=== PATIENT | female | born 1970 | race Caucasian/White ===

== ENCOUNTER 2016-03-22 11:00 | Emergency (ER) | payer BC, OTHER ==
[~2016-03-22 11:00] MED LIST: FOSI1TAB8 PO; HAIRTAB5 PO; HYDR12.55 PO; IBUP600T26 PO; MONT10TA2 PO; NORC5TAB PO; OMEP40CA2 PO; PROA1AER IN; PROBCAP4 PO; advair INH; fluticasone
[2016-03-22 11:49] LABS: EOS # 0.6 K/mm3 (0.0-0.50); EOS % 12.2 % (0.0-3.0); LARGE UNSTAINED CELL # 0.2 K/mm3 (0.0-0.4); LYMPH % 39.3 % (24.0-44.0); MEAN CORPUSCULAR HEMOGLOBIN 31.7 pg (27.0-33.0); MEAN CORPUSCULAR HGB CONC 34.5 g/dl (32.0-36.5); MONO # 0.3 K/mm3 (0.0-0.8); MONO % 5.7 % (0.0-5.0); NEUTROPHILS # 1.8 K/mm3 (1.8-7.7); NEUTROPHILS % 38.7 % (36.0-66.0); PLATELET COUNT, AUTOMATED 225 k/mm3 (150-450); RED CELL DISTRIBUTION WIDTH 13.3 % (11.5-14.5); WHITE BLOOD COUNT 4.8 K/mm3 (4.0-10.0)
[2016-03-22 12:05] LABS: ALBUMIN 4.3 GM/DL (3.2-5.2); ALBUMIN/GLOBULIN RATIO 1.16 (1.00-1.93); ALKALINE PHOSPHATASE 93 U/L (45-117); ALT/SGPT 30 U/L (12-78); ANION GAP 10 MEQ/L (8-16); AST/SGOT 17 U/L (15-37); BILIRUBIN,DIRECT 0.1 MG/DL (0.0-0.2); BILIRUBIN,TOTAL 0.6 MG/DL (0.2-1.0); BLOOD UREA NITROGEN 15 MG/DL (7-18); CALCIUM LEVEL 9.1 MG/DL (8.5-10.1); CARBON DIOXIDE LEVEL 28 MEQ/L (21-32); CHLORIDE LEVEL 105 MEQ/L (98-107); GLOMERULAR FILTRATION RATE 47.6 (>58); GLUCOSE, FASTING 77 MG/DL (70-105); POTASSIUM SERUM 3.6 MEQ/L (3.5-5.1); SODIUM LEVEL 143 MEQ/L (136-145)
--- NOTE | 2016-03-22 12:26 | REP ---
Portable chest x-ray: Single view. History: Chest pain. Comparison chest x-ray is from March 21, 2016. Findings: The lungs remain well inflated and clear. Heart size is normal. EKG monitoring electrodes overlie the chest. No bony abnormality is seen. Impression: Negative portable chest x-ray. Signed by Gavin Maria MD 03/22/2016 02:06 P
[2016-03-22] MEDS ORDERED: ISOVUE-370 76% 100ML VIAL (Q9967) As Ordered ONE (12:53)
--- NOTE | 2016-03-22 14:49 | EDDOCDS ---
Physician Documentation [facility] Name: Devorah Crawford Age: 45 yrs Sex: Female : 1970 Arrival Date: 03/22/2016 Time: 11:00 Bed 12 Private MD: Irma Zavala Disposition: 03/22/16 14:40 Discharged to Home/Self Care. Impression: Chest pain, unspecified, Pleurisy. - Condition is Stable. - Discharge Instructions: Nonspecific Chest Pain, Pleurisy. - Prescriptions for Ibuprofen 600 mg Oral Tablet - take 1 tablet by ORAL route every 8 hours As needed take with food; 20 tablet. - Medication Reconciliation, Local Pharmacy Hours form. - Follow up: Irma Zavala; When: 1 - 2 days. - Problem is new. - Symptoms have improved. - Notes: follow up with dr zavala. return if worsening symptoms Historical: - Allergies: SULFA (SULFONAMIDES) (nausea); - Home Meds: 1. hydrochlorothiazide 12.5 mg Oral cap 1 cap once daily (Last dose: 03/22/2016 09:30) 2. fosinopril oral oral 1 tab once daily (Last dose: 03/22/2016 09:30) 3. venlafaxine 37.5 mg oral cp24 1 cap once daily (Last dose: 03/22/2016 09:30) 4. Advair Diskus 250-50 mcg/dose Inhl dsdv 1 puff 2 times per day (Last dose: 03/21/2016) 5. albuterol sulfate 90 mcg/actuation Inhl aepb 1 puff every 4 hours as needed (Last dose: 03/21/2016) - PMHx: Asthma; Hypertension; Polycystic Kidney Disease; - PSHx: Hysterectomy; Lumpectomy- Right; - Social history: Smoking status: Patient states was never smoker of tobacco. No barriers to communication noted, The patient speaks fluent [place]rugu[place]. - Family history: Not pertinent. - : The pt / caregiver states he / she is not on anticoagulants. Home medication list is obtained from the patient. - Exposure Risk Screening:: None identified. 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 3 in. (160.02 cm); Pain 9/; 11:23 BP 169 / 86 (auto/); pml 11:25 Pulse 82 MON; Pulse Ox 97% ; pml 11:38 Pulse 78 MON; Pulse Ox 95% ; pml 11:38 BP 150 / 72 (auto/); pml 11:53 Pulse 72 MON; Pulse Ox 95% ; pml 11:53 BP 138 / 85 (auto/); pml 12:08 Pulse 68 MON; Pulse Ox 96% ; pml 12:08 BP 134 / 81 (auto/); pml 12:23 Pulse 68 MON; Pulse Ox 96% ; pml 12:23 BP 136 / 74 (auto/); pml 12:38 Pulse 68 MON; Pulse Ox 97% ; pml 12:38 BP 133 / 74 (auto/); pml 12:53 Pulse 68 MON; Pulse Ox 96% ; pml 12:53 BP 131 / 72 (auto/); pml 13:18 Pulse 74 MON; Pulse Ox 97% ; pml 13:18 BP 136 / 81 (auto/); pml 13:23 Pulse 72 MON; Pulse Ox 96% ; pml 13:23 BP 128 / 78 (auto/); pml 13:38 Pulse 66 MON; Pulse Ox 96% ; pml 13:38 BP 137 / 80 (auto/); pml 13:53 Pulse 66 MON; Pulse Ox 97% ; pml 13:53 BP 128 / 79 (auto/); pml 14:08 Pulse 68 MON; Pulse Ox 98% ; pml 14:08 BP 123 / 79 (auto/); pml 14:23 Pulse 74 MON; Pulse Ox 97% ; pml 14:23 BP 140 / 73 (auto/); pml 14:46 BP 123 / 71; Pulse 64; Resp 18; Temp 97.7; Pulse Ox 96% ; Pain /10; pml 11:03 Body Mass Index 25.15 (64.41 kg, 160.02 cm) elp MDM: 11:13 ECG WITH READING ER PHYS+CARDIAG ordered. EDMS 11:20 IV Saline Lock ordered. ml 11:20 System Support Technician/Pulse Ox/q 15 min VS ordered. ml 11:20 Rhythm Strip to chart ordered. ml 11:20 CBC with Diff Ordered. EDMS 11:20 MED Profile Ordered. EDMS 11:20 CIP Ordered. EDMS 11:20 Troponin Ordered. EDMS 11:20 Liver Profile Ordered. EDMS 11:20 Lipase Ordered. EDMS 11:21 Chest, 1 View Ordered. EDMS 11:45 [facility] Payment Agreement was scanned into [employer] and attached to record. dm19 11:46 Financial registration complete. dm19 12:41 CBC with Diff Reviewed. ml 12:41 MED Profile Reviewed. ml 12:41 CIP Reviewed. ml 12:41 Troponin Reviewed. ml 12:41 Liver Profile Reviewed. ml 12:41 Lipase Reviewed. ml 12:41 Chest, 1 View Reviewed. ml 12:43 CT Chest Angio R/O PE Ordered. EDMS 13:03 CT ABD & PELVIS: IV Contrast Only Ordered. EDMS Signatures: Dispatcher [employer] EDMS Ana De Dios MD MD ml Castle, Jennifer RN RN jc4 Alicia Bustamante RN RN pml McLear, Diane dm19 The chart was reviewed and I authenticate all verbal orders and agree with the evaluation and treatment provided.Attachments: 11:45 [facility] Payment Agreement dm19 MTDD
--- NOTE | 2016-03-22 14:49 | EDDOCDS ---
Nurse's Notes [facility] Name: Devorah Crawford Age: 45 yrs Sex: Female : 1970 Arrival Date: 03/22/2016 Time: 11:00 Bed 12 Private MD: Irma Zavala Diagnosis: Chest pain, unspecified;Pleurisy Presentation: 03/22 11:04 Presenting complaint: Patient states: "I'm having chest pain on my left side. I was jc4 seen at [facility] yesterday and they did an X-ray and a EKG and they called me today and when they found out I wasn't doing any better, they told me they weren't comfortable with me waiting until Thursday". States pain has been intermittent since 03/17, worse with taking deep breath. States pain is beneath left breast and hurts upon palpation. Aspirin was not taken prior to arrival. Adult Sepsis Screening: The patient does not have new or worsening altered mentation. Patient's respiratory rate is less than 22. Systolic blood pressure is greater than 100. Patient has a qSOFA score of 0- Negative Sepsis Screen. Suicide/Homicide risk assessment- the patient denies having any suicidal and/or homicidal ideations and does not present with any other emotional, behavioral or mental health complaints. Status: Patient is not a community service manager or dependent. Transition of care: patient was not received from another setting of care. 11:04 Acuity: DIVYA Level 3 jc4 11:04 Method Of Arrival: Walkin/Carried/Asstd jc4 11:06 Red Flag criteria, patient assessed and is suitable to finish the RCE Process. dls Triage Assessment: 11:10 General: Appears in no apparent distress. Pain: Pain currently is 8 out of 10 on a pain jc4 scale. HIV screening NA for this visit Offered previously. Cardiovascular: Chest pain is described as Pain is 9 out of 10 on a pain scale. is located in left anterior chest wall radiates to left shoulder episodes are intermittent began on 03/17/16. 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 hydrochlorothiazide 12.5 mg Oral cap 1 cap once daily (Last dose: 03/22/2016 09:30) 2. fosinopril oral oral 1 tab once daily (Last dose: 03/22/2016 09:30) 3. venlafaxine 37.5 mg oral cp24 1 cap once daily (Last dose: 03/22/2016 09:30) 4. Advair Diskus 250-50 mcg/dose Inhl dsdv 1 puff 2 times per day (Last dose: 03/21/2016) 5. albuterol sulfate 90 mcg/actuation Inhl aepb 1 puff every 4 hours as needed (Last dose: 03/21/2016) - PMHx: Asthma; Hypertension; Polycystic Kidney Disease; - PSHx: Hysterectomy; Lumpectomy- Right; - Social history: Smoking status: Patient states was never smoker of tobacco. No barriers to communication noted, The patient speaks fluent Rwandan. - Family history: Not pertinent. - : The pt / caregiver states he / she is not on anticoagulants. Home medication list is obtained from the patient. - Exposure Risk Screening:: None identified. Screenin:30 Screening information is obtained from the patient. Fall risk: No risks identified. pml Assistance ADL's: requires no assistance with activities of daily living. Abuse/DV Screen: The patient / caregiver reports he/she is: not in a situation that causes fear, pain or injury. Nutritional screening: No deficits noted. Advance Directives: Currently, there is no health care proxy. home support is adequate. Assessment: 11:30 General: Appears in no apparent distress, Behavior is appropriate for age, cooperative. pml Pain: Location: anterior aspect of left upper chest and left breast Pain currently is 6 out of 10 on a pain scale. Aggravated by repositioning, deep respiration. Neurological: Level of Consciousness is awake, alert, Oriented to person, place, time. Cardiovascular: Capillary refill < 3 seconds Rhythm is sinus rhythm No ectopy. Respiratory: Airway is patent Respiratory effort is even, unlabored. GI: Abdomen is non- distended Abd is soft X 4 quads Abd is tender to palpation in left chest wall when palpating in left upper quad. Derm: Skin is pink, warm & dry. 12:25 General: resting on stretcher, resps easy and unlabored, skin p/w/d. reports pain is pml unchanged. . 13:18 General: Pt tp CT - tolerated well. no complaints. reports pain remains 4/10. pml 14:30 General: Appears in no apparent distress, comfortable, Behavior is appropriate for age, pml cooperative. Neurological: Level of Consciousness is awake, alert, Oriented to person, place, time. Cardiovascular: Capillary refill < 3 seconds Rhythm is sinus rhythm No ectopy. Respiratory: Airway is patent Respiratory effort is even, unlabored. Derm: Skin is pink, warm & dry. 14:46 General: Appears in no apparent distress, comfortable, Behavior is appropriate for age, pml cooperative. Pain: Location: anterior aspect of left upper chest Pain currently is 1 out of 10 on a pain scale. Neurological: Level of Consciousness is awake, alert, Oriented to person, place, time. Cardiovascular: Capillary refill < 3 seconds. Respiratory: Airway is patent Respiratory effort is even, unlabored. Derm: Skin is pink, warm & dry. Vital Signs: 11:03 BP 153 / 91; Pulse 77; Resp 18; Temp 96.9; Pulse Ox 99% ; Weight 64.41 kg; Height 5 ft. elp 3 in. (160.02 cm); Pain 9/10; 11:23 BP 169 / 86 (auto/); pml 11:25 Pulse 82 MON; Pulse Ox 97% ; pml 11:38 Pulse 78 MON; Pulse Ox 95% ; pml 11:38 BP 150 / 72 (auto/); pml 11:53 Pulse 72 MON; Pulse Ox 95% ; pml 11:53 BP 138 / 85 (auto/); pml 12:08 Pulse 68 MON; Pulse Ox 96% ; pml 12:08 BP 134 / 81 (auto/); pml 12:23 Pulse 68 MON; Pulse Ox 96% ; pml 12:23 BP 136 / 74 (auto/); pml 12:38 Pulse 68 MON; Pulse Ox 97% ; pml 12:38 BP 133 / 74 (auto/); pml 12:53 Pulse 68 MON; Pulse Ox 96% ; pml 12:53 BP 131 / 72 (auto/); pml 13:18 Pulse 74 MON; Pulse Ox 97% ; pml 13:18 BP 136 / 81 (auto/); pml 13:23 Pulse 72 MON; Pulse Ox 96% ; pml 13:23 BP 128 / 78 (auto/); pml 13:38 Pulse 66 MON; Pulse Ox 96% ; pml 13:38 BP 137 / 80 (auto/); pml 13:53 Pulse 66 MON; Pulse Ox 97% ; pml 13:53 BP 128 / 79 (auto/); pml 14:08 Pulse 68 MON; Pulse Ox 98% ; pml 14:08 BP 123 / 79 (auto/); pml 14:23 Pulse 74 MON; Pulse Ox 97% ; pml 14:23 BP 140 / 73 (auto/); pml 14:46 BP 123 / 71; Pulse 64; Resp 18; Temp 97.7; Pulse Ox 96% ; Pain 1/10; pml 11:03 Body Mass Index 25.15 (64.41 kg, 160.02 cm) elp Vitals: 11:03 Log In Time: March 22, 2016 at 11:00. RN notified that patient meets Red Flag elp criteria. ED Course: 11:02 Patient visited by Adilene Hunt PCA. elp 11:02 Irma Zavala is Private Physician. elp 11:02 Patient moved to Waiting elp 11:03 Patient visited by Adilene Hunt PCA. elp 11:07 Triage Initiated jc4 11:12 Alicia Bustamante RN is Primary Nurse. jc4 11:12 Patient moved to 12 jc4 11:14 Ana De Dios MD is Attending Physician. ml 11:14 Patient visited by Ana De Dios MD. ml 11:21 EKG done per protocol. Performed by ED Staff. Shown to Ana De Dios MD. pml 11:22 scientist propagator on. Pulse ox on. NIBP on. ct3 11:26 Patient visited by Alicia Bustamante RN. pml 11:26 Accompanied by Family Member, Patient has correct armband on for positive ct3 identification. Placed in gown. Bed in low position. Call light in reach. Side rails up X2. 11:27 Patient visited by Peace Velasco PCA. ct3 11:30 The patient / caregiver is instructed regarding the plan of care and ED course. pml 11:32 Patient visited by Alicia Bustamante RN. pml 11:45 [facility] Payment Agreement was scanned into [employer] and attached to record. dm19 12:30 Inserted peripheral IV: 20gauge IV in left forearm and blood collected. Patient pml tolerated the procedure well. by DAYA Stapleton. 12:31 Patient visited by Peace Velasco PCA. ct3 12:40 Chest, 1 View Returned. EDMS 12:54 Patient visited by Alicia Bustamante,DAYA. pml 13:19 Patient visited by Alicia Bustamante RN. pml 14:30 Chest, 1 View Returned. EDMS 14:35 Patient visited by Alicia Bustamante,DAYA. pml 14:40 Irma Zavala is Referral Physician. ml 14:46 Discontinued lock intact, bleeding controlled, pressure dressing applied, No pml redness/swelling at site. No procedures done that require assistance. Order Results: Lab Order: CBC with Diff; SPEC'M 03/22/16 11:36 Test: WHITE BLOOD COUNT; Value: 4.8; Range: 4.0-10.0; Units: K/mm3; Status: F Test: RED BLOOD COUNT; Value: 4.66; Range: 4.00-5.40; Units: M/mm3; Status: F Test: HEMOGLOBIN; Value: 14.8; Range: 12.0-16.0; Units: g/dl; Status: F Test: HEMATOCRIT; Value: 42.9; Range: 36.0-47.0; Units: %; Status: F Test: MEAN CORPUSCULAR VOLUME; Value: 92.0; Range: 80.0-96.0; Units: fl; Status: F Test: MEAN CORPUSCULAR HEMOGLOBIN; Value: 31.7; Range: 27.0-33.0; Units: pg; Status: F Test: MEAN CORPUSCULAR HGB CONC; Value: 34.5; Range: 32.0-36.5; Units: g/dl; Status: F Test: RED CELL DISTRIBUTION WIDTH; Value: 13.3; Range: 11.5-14.5; Units: %; Status: F Test: PLATELET COUNT, AUTOMATED; Value: 225; Range: 150-450; Units: k/mm3; Status: F Test: NEUTROPHILS %; Value: 38.7; Range: 36.0-66.0; Units: %; Status: F Test: LYMPH %; Value: 39.3; Range: 24.0-44.0; Units: %; Status: F Test: MONO %; Value: 5.7; Range: 0.0-5.0; Abnormal: Above high normal; Units: %; Status: F Test: EOS %; Value: 12.2; Range: 0.0-3.0; Abnormal: Above high normal; Units: %; Status: F Test: BASO %; Value: 1.0; Range: 0.0-1.0; Units: %; Status: F Test: LARGE UNSTAINED CELL %; Value: 3.0; Range: 0.0-4.0; Units: %; Status: F Test: NEUTROPHILS #; Value: 1.8; Range: 1.8-7.7; Units: K/mm3; Status: F Test: LYMPH #; Value: 2.0; Range: 1.5-4.5; Units: K/mm3; Status: F Test: MONO #; Value: 0.3; Range: 0.0-0.8; Units: K/mm3; Status: F Test: EOS #; Value: 0.6; Range: 0.0-0.50; Abnormal: Above high normal; Units: K/mm3; Status: F Test: BASO #; Value: 0.0; Range: 0.0-0.2; Units: K/mm3; Status: F Test: LARGE UNSTAINED CELL #; Value: 0.2; Range: 0.0-0.4; Units: K/mm3; Status: F Lab Order: [facility]; SPEC'M 03/22/16 11:36 Test: GLUCOSE, FASTING; Value: 77; Range: 70-105; Units: MG/DL; Status: F Test: BLOOD UREA NITROGEN; Value: 15; Range: 7-18; Units: MG/DL; Status: F Test: CREATININE FOR GFR; Value: 1.30; Range: 0.55-1.02; Abnormal: Above high normal; Units: MG/DL; Status: F Test: GLOMERULAR FILTRATION RATE; Value: 47.6; Range: >58; Abnormal: Below low normal; Status: F Test: SODIUM LEVEL; Value: 143; Range: 136-145; Units: MEQ/L; Status: F Test: POTASSIUM SERUM; Value: 3.6; Range: 3.5-5.1; Units: MEQ/L; Status: F Test: CHLORIDE LEVEL; Value: 105; Range: 98-107; Units: MEQ/L; Status: F Test: CARBON DIOXIDE LEVEL; Value: 28; Range: 21-32; Units: MEQ/L; Status: F Test: ANION GAP; Value: 10; Range: 8-16; Units: MEQ/L; Status: F Test: CALCIUM LEVEL; Value: 9.1; Range: 8.5-10.1; Units: MG/DL; Status: F Test Note: ; Units are mL/min/1.73 m2 Chronic Kidney Disease Staging per NKF: Stage I & II GFR >=60 Normal to Mildly Decreased Stage III GFR 30-59 Moderately Decreased Stage IV GFR 15-29 Severely Decreased Stage V GFR <15 Very Little GFR Left ESRD GFR <15 on CANAL SUPERINTENDENT Lab Order: CIP; SPEC'03/22/16 11:36 Test: CPK CREATINE PHOSPHOKINASE; Value: 48; Range: 26-192; Units: U/L; Status: F Test: CK-MB VALUE MASS; Value: 1.0; Range: 0.0-3.6; Units: NG/ML; Status: F Test: MB/CK RELATIVE INDEX; Value: 2.08; Range: < OR =4; Status: F Test Note: ; DIAGNOSIS CRITERIA MMB ng/ml Relative Index (RI) NON-AMI < or = 5 N/A PETERSON ZONE > 5 < or = 4 AMI > 5 > 4 Lab Order: Troponin; SPEC03/22/16 11:36 Test: TROPONIN I; Value: < 0.02; Range: < 0.10; Units: NG/ML; Status: F Test Note: ; Troponin I Reference Interval for [place] LOCI: 99th Percentile= 0.00-0.045 ng/ml Risk Stratification: <= 0.10 ng/ml Decreased Risk for Adverse Clinical Events. 0.10-1.50 ng/ml Increased Risk for Adverse Clinical Events. Evaluation of additional criterion and/or repeat testing in 2-6 hours is suggested to rule out myocardial damage. >= 1.50 ng/ml Indicative of Myocardial Injury. Lab Order: Liver Profile; SPEC03/22/16 11:36 Test: AST/SGOT; Value: 17; Range: 15-37; Units: U/L; Status: F Test: ALT/SGPT; Value: 30; Range: 12-78; Units: U/L; Status: F Test: ALKALINE PHOSPHATASE; Value: 93; Range: 45-117; Units: U/L; Status: F Test: BILIRUBIN,TOTAL; Value: 0.6; Range: 0.2-1.0; Units: MG/DL; Status: F Test: BILIRUBIN,DIRECT; Value: 0.1; Range: 0.0-0.2; Units: MG/DL; Status: F Test: TOTAL PROTEIN; Value: 8.0; Range: 6.4-8.2; Units: GM/DL; Status: F Test: ALBUMIN; Value: 4.3; Range: 3.2-5.2; Units: GM/DL; Status: F Test: ALBUMIN/GLOBULIN RATIO; Value: 1.16; Range: 1.00-1.93; Status: F Lab Order: Lipase; SPEC'M 03/22/16 11:36 Test: LIPASE; Value: 240; Range: 73-393; Units: U/L; Status: F Radiology Order: Chest, 1 View Test: Chest, 1 View REASON FOR EXAMINATION: Chest Pain; Portable chest x-ray: Single view.; ; History: Chest pain.; ; Comparison chest x-ray is from March 21, 2016.; ; Findings: The lungs remain well inflated and clear. Heart size is normal. EKG; monitoring electrodes overlie the chest. No bony abnormality is seen.; ; Impression:; ; Negative portable chest x-ray.; ; ; Signed by; Gavin Maria MD 03/22/2016 02:06 P; Outcome: 14:40 Discharge ordered by Provider. 14:48 Discharge Assessment: Patient awake, alert and oriented x 3. No cognitive and/or pml functional deficits noted. Patient verbalized understanding of disposition instructions. patient administered narcotics - no. 14:48 The following High Risk Discharge criteria are identified: None. Discharged to home pml ambulatory. Condition: good Condition: stable. Discharge instructions given to patient, Instructed on discharge instructions, follow up and referral plans. medication usage, Demonstrated understanding of instructions, medications, Pt was receptive of discharge instructions/ teaching. Prescriptions given X 1. No special radiology studies were completed. Property sent home with patient. 14:48 Patient left the ED. pml Signatures: Dispatcher [facility] Ana De Dios MD MD ml Scott, Debra, RN RN dls Castle, Jennifer, RN RN jc4 Peace Velasco, COMPUTER MECHANIC COMPUTER MECHANIC ct3 Alicia BustamanteRN RN pml Adilene Hunt, COMPUTER MECHANIC COMPUTER MECHANIC elp Bernadette Yanez dm19 Corrections: (The following items were deleted from the chart) 11:26 11:25 EKG done per protocol. Performed by ED Staff. Shown to Ana sanders pml 13:19 11:30 General: resting on stretcher, resps easy and unlabored, skin p/w/d. reports pain pml is unchanged. . pml MTDD
--- NOTE | 2016-03-22 16:30 | REP ---
CT pulmonary angiogram: With IV contrast. History: Chest pain. History of polycystic kidney disease. Left upper quadrant pain. Comparison studies: No comparison study. Contrast dose: 100 cc's of Isovue [address] technique: Helical scanning is acquired and overlapping 1.5 mm and contiguous 3 mm axial images are reformatted. In addition, a 3-D work station is deployed to generate thick slab maximum intensity projection images in sagittal and coronal imaging projections. CT pulmonary angiographic findings: There is good opacification of the pulmonary arterial tree and there is no CT evidence of pulmonary embolus. The thoracic aorta enhances homogeneously and is normal in caliber and course. There is no evidence of hilar or mediastinal mass or adenopathy. There is some residual thymic tissue in the anterior mediastinum. Maximum intensity projection images show no evidence of vessel cutoff or filling defect. No infiltrate, mass or adenopathy is seen in the lungs. There is a granulomatous calcification in the lingula and some mild linear fibrosis is seen in the right middle lobe and left lower lobe. The upper poles of each kidney are included in the field of view and there are multiple low-density lesions consistent with cysts. There are a few parenchymal calcifications in the upper pole of each kidney as well. No hepatic cyst or splenic cyst is seen. The tail of the pancreas is unremarkable. No adrenal lesion is seen. Impression: 1. No CT evidence of pulmonary embolus. 2. Multiple cysts and calcifications in the upper pole of each kidney consistent with a history of polycystic kidney disease. 3. Granulomatous calcification lingular segment left upper lobe. Signed by Gavin Maria MD 03/22/2016 04:39 P
--- NOTE | 2016-03-22 16:43 | REP ---
CT study of the abdomen and pelvis with IV but without oral contrast: History: Left upper quadrant abdominal pain. CT contrast dose: 100 mL of Isovue [address] study is from September 10, 2005. Findings: The liver and spleen are normal in size and homogeneous in texture on postcontrast images. No adrenal lesion is seen. The gallbladder is unremarkable. No pancreatic lesion is seen. The kidneys are abnormal with multiple medium-size cysts and some overall cortical thinning. They are not particularly enlarged and this may reflect multicystic kidney disease rather than adult polycystic kidney disease. No pancreatic splenic or hepatic cyst is seen. Findings are essentially unchanged from the comparison CT study. There are parenchymal calcifications in both kidneys. No hydronephrosis or solid mass lesion is seen on either side. Normal caliber aorta is noted. Small and large intestinal bowel loops are normal in the upper abdomen. A normal appendix is seen. No abdominal wall defect is observed. No bony destructive lesion. Impression: Multicystic versus polycystic kidney disease bilaterally. No acute abdominal or pelvic abnormality. Signed by Gavin Maria MD 03/22/2016 04:55 P
--- NOTE | 2016-03-22 23:00 | ECGEPIP ---
Stationary ECG Study [facility] - ED Test Date: 2016-03-22 Pat Name: KANE NELSON Department: Room: - Gender: F Advertiser: ct : 1970 Requested By: Ana De Dios Order Number: [id number] Reading MD: Genaro Parker Measurements Intervals [place] Rate: 84 P: 68 ID: [id number] QRS: 65 QRSD: 90 T: 64 QT: 396 QTc: 468 Interpretive Statements SINUS RHYTHM MINIMAL ST DEPRESSION PRWP Electronically Signed On 03-22-2016 23:00:10 EST by Genaro Parker
--- NOTE | 2016-03-25 11:12 | EDDOCDS ---
Nurse's Notes [facility] Name: Kane Crawford Age: 45 yrs Sex: Female : 1970 Arrival Date: 03/22/2016 Time: 11:00 Bed 12 Private MD: Irma Zavala Diagnosis: Chest pain, unspecified;Pleurisy Presentation: 03/22 11:04 Presenting complaint: Patient states: "I'm having chest pain on my left side. I was jc4 seen at [facility] yesterday and they did an X-ray and a EKG and they called me today and when they found out I wasn't doing any better, they told me they weren't comfortable with me waiting until Thursday". States pain has been intermittent since 03/17, worse with taking deep breath. States pain is beneath left breast and hurts upon palpation. Aspirin was not taken prior to arrival. Adult Sepsis Screening: The patient does not have new or worsening altered mentation. Patient's respiratory rate is less than 22. Systolic blood pressure is greater than 100. Patient has a qSOFA score of 0- Negative Sepsis Screen. Suicide/Homicide risk assessment- the patient denies having any suicidal and/or homicidal ideations and does not present with any other emotional, behavioral or mental health complaints. 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 Transition of care: patient was not received from another setting of care. 11:04 Acuity: DIVYA Level 3 jc4 11:04 Method Of Arrival: Walkin/Carried/Asstd jc4 11:06 Red Flag criteria, patient assessed and is suitable to finish the RCE Process. dls Triage Assessment: 11:10 General: Appears in no apparent distress. Pain: Pain currently is 8 out of 10 on a pain jc4 scale. HIV screening NA for this visit Offered previously. Cardiovascular: Chest pain is described as Pain is 9 out of 10 on a pain scale. is located in left anterior chest wall radiates to left shoulder episodes are intermittent began on 03/17/16. 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 hydrochlorothiazide 12.5 mg Oral cap 1 cap once daily (Last dose: 03/22/2016 09:30) 2. fosinopril oral oral 1 tab once daily (Last dose: 03/22/2016 09:30) 3. venlafaxine 37.5 mg oral cp24 1 cap once daily (Last dose: 03/22/2016 09:30) 4. Advair Diskus 250-50 mcg/dose Inhl dsdv 1 puff 2 times per day (Last dose: 03/21/2016) 5. albuterol sulfate 90 mcg/actuation Inhl aepb 1 puff every 4 hours as needed (Last dose: 03/21/2016) - PMHx: Asthma; Hypertension; Polycystic Kidney Disease; - PSHx: Hysterectomy; Lumpectomy- Right; - Social history: Smoking status: Patient states was never smoker of tobacco. No barriers to communication noted, The patient speaks fluent Gambian. - Family history: Not pertinent. - : The pt / caregiver states he / she is not on anticoagulants. Home medication list is obtained from the patient. - Exposure Risk Screening:: None identified. Screenin:30 Screening information is obtained from the patient. Fall risk: No risks identified. pml Assistance ADL's: requires no assistance with activities of daily living. Abuse/DV Screen: The patient / caregiver reports he/she is: not in a situation that causes fear, pain or injury. Nutritional screening: No deficits noted. Advance Directives: Currently, there is no health care proxy. home support is adequate. Assessment: 11:30 General: Appears in no apparent distress, Behavior is appropriate for age, cooperative. pml Pain: Location: anterior aspect of left upper chest and left breast Pain currently is 6 out of 10 on a pain scale. Aggravated by repositioning, deep respiration. Neurological: Level of Consciousness is awake, alert, Oriented to person, place, time. Cardiovascular: Capillary refill < 3 seconds Rhythm is sinus rhythm No ectopy. Respiratory: Airway is patent Respiratory effort is even, unlabored. GI: Abdomen is non- distended Abd is soft X 4 quads Abd is tender to palpation in left chest wall when palpating in left upper quad. Derm: Skin is pink, warm & dry. 12:25 General: resting on stretcher, resps easy and unlabored, skin p/w/d. reports pain is pml unchanged. . 13:18 General: Pt tp CT - tolerated well. no complaints. reports pain remains 4/10. pml 14:30 General: Appears in no apparent distress, comfortable, Behavior is appropriate for age, pml cooperative. Neurological: Level of Consciousness is awake, alert, Oriented to person, place, time. Cardiovascular: Capillary refill < 3 seconds Rhythm is sinus rhythm No ectopy. Respiratory: Airway is patent Respiratory effort is even, unlabored. Derm: Skin is pink, warm & dry. 14:46 General: Appears in no apparent distress, comfortable, Behavior is appropriate for age, pml cooperative. Pain: Location: anterior aspect of left upper chest Pain currently is 1 out of 10 on a pain scale. Neurological: Level of Consciousness is awake, alert, Oriented to person, place, time. Cardiovascular: Capillary refill < 3 seconds. Respiratory: Airway is patent Respiratory effort is even, unlabored. Derm: Skin is pink, warm & dry. Vital Signs: 11:03 BP 153 / 91; Pulse 77; Resp 18; Temp 96.9; Pulse Ox 99% ; Weight 64.41 kg; Height 5 ft. elp 3 in. (160.02 cm); Pain 9/10; 11:23 BP 169 / 86 (auto/); pml 11:25 Pulse 82 MON; Pulse Ox 97% ; pml 11:38 Pulse 78 MON; Pulse Ox 95% ; pml 11:38 BP 150 / 72 (auto/); pml 11:53 Pulse 72 MON; Pulse Ox 95% ; pml 11:53 BP 138 / 85 (auto/); pml 12:08 Pulse 68 MON; Pulse Ox 96% ; pml 12:08 BP 134 / 81 (auto/); pml 12:23 Pulse 68 MON; Pulse Ox 96% ; pml 12:23 BP 136 / 74 (auto/); pml 12:38 Pulse 68 MON; Pulse Ox 97% ; pml 12:38 BP 133 / 74 (auto/); pml 12:53 Pulse 68 MON; Pulse Ox 96% ; pml 12:53 BP 131 / 72 (auto/); pml 13:18 Pulse 74 MON; Pulse Ox 97% ; pml 13:18 BP 136 / 81 (auto/); pml 13:23 Pulse 72 MON; Pulse Ox 96% ; pml 13:23 BP 128 / 78 (auto/); pml 13:38 Pulse 66 MON; Pulse Ox 96% ; pml 13:38 BP 137 / 80 (auto/); pml 13:53 Pulse 66 MON; Pulse Ox 97% ; pml 13:53 BP 128 / 79 (auto/); pml 14:08 Pulse 68 MON; Pulse Ox 98% ; pml 14:08 BP 123 / 79 (auto/); pml 14:23 Pulse 74 MON; Pulse Ox 97% ; pml 14:23 BP 140 / 73 (auto/); pml 14:46 BP 123 / 71; Pulse 64; Resp 18; Temp 97.7; Pulse Ox 96% ; Pain 1/10; pml 11:03 Body Mass Index 25.15 (64.41 kg, 160.02 cm) elp Vitals: 11:03 Log In Time: March 22, 2016 at 11:00. RN notified that patient meets Red Flag elp criteria. ED Course: 11:02 Patient visited by Adilene Hunt PCA. elp 11:02 Irma Zavala is Private Physician. elp 11:02 Patient moved to Waiting elp 11:03 Patient visited by Adilene Hunt PCA. elp 11:07 Triage Initiated jc4 11:12 Alicia Bustamante RN is Primary Nurse. jc4 11:12 Patient moved to 12 jc4 11:14 Ana De Dios MD is Attending Physician. ml 11:14 Patient visited by Ana De Dios MD. ml 11:21 EKG done per protocol. Performed by ED Staff. Shown to Ana De Dios MD. 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 Pulse ox on. NIBP on. ct3 11:26 Patient visited by Alicia Bustamante RN. pml 11:26 Accompanied by Family Member, Patient has correct armband on for positive ct3 identification. Placed in gown. Bed in low position. Call light in reach. Side rails up X2. 11:27 Patient visited by Peace Velasco PCA. ct3 11:30 The patient / caregiver is instructed regarding the plan of care and ED course. pml 11:32 Patient visited by Alicia Bustamante RN. pml 11:45 [facility] Payment Agreement was scanned into [employer] and attached to record. dm19 12:30 Inserted peripheral IV: 20gauge IV in left forearm and blood collected. Patient pml tolerated the procedure well. by DAYA Stapleton. 12:31 Patient visited by Peace Velasco PCA. ct3 12:40 Chest, 1 View Returned. EDMS 12:54 Patient visited by Alicia Bustamante,RN. pml 13:19 Patient visited by Alicia Bustamante,DAYA. pml 14:30 Chest, 1 View Returned. EDMS 14:35 Patient visited by Alicia Bustamante,DAYA. pml 14:40 Irma Zavala is Referral Physician. ml 14:46 Discontinued lock intact, bleeding controlled, pressure dressing applied, No pml redness/swelling at site. No procedures done that require assistance. 17:10 CT Chest Angio R/O PE Returned. EDMS 17:10 CT ABD & PELVIS: IV Contrast Only Returned. EDMS 21:09 T-Sheet-- Draft Copy was scanned into [employer] and attached to record. klr 23:42 EKG-ADULT Returned. EDMS 03/23 09:32 ECG/EKG was scanned into [employer] and attached to record. gb Order Results: Lab Order: CBC with Diff; SPEC'M 03/22/16 11:36 Test: WHITE BLOOD COUNT; Value: 4.8; Range: 4.0-10.0; Units: K/mm3; Status: F Test: RED BLOOD COUNT; Value: 4.66; Range: 4.00-5.40; Units: M/mm3; Status: F Test: HEMOGLOBIN; Value: 14.8; Range: 12.0-16.0; Units: g/dl; Status: F Test: HEMATOCRIT; Value: 42.9; Range: 36.0-47.0; Units: %; Status: F Test: MEAN CORPUSCULAR VOLUME; Value: 92.0; Range: 80.0-96.0; Units: fl; Status: F Test: MEAN CORPUSCULAR HEMOGLOBIN; Value: 31.7; Range: 27.0-33.0; Units: pg; Status: F Test: MEAN CORPUSCULAR HGB CONC; Value: 34.5; Range: 32.0-36.5; Units: g/dl; Status: F Test: RED CELL DISTRIBUTION WIDTH; Value: 13.3; Range: 11.5-14.5; Units: %; Status: F Test: PLATELET COUNT, AUTOMATED; Value: 225; Range: 150-450; Units: k/mm3; Status: F Test: NEUTROPHILS %; Value: 38.7; Range: 36.0-66.0; Units: %; Status: F Test: LYMPH %; Value: 39.3; Range: 24.0-44.0; Units: %; Status: F Test: MONO %; Value: 5.7; Range: 0.0-5.0; Abnormal: Above high normal; Units: %; Status: F Test: EOS %; Value: 12.2; Range: 0.0-3.0; Abnormal: Above high normal; Units: %; Status: F Test: BASO %; Value: 1.0; Range: 0.0-1.0; Units: %; Status: F Test: LARGE UNSTAINED CELL %; Value: 3.0; Range: 0.0-4.0; Units: %; Status: F Test: NEUTROPHILS #; Value: 1.8; Range: 1.8-7.7; Units: K/mm3; Status: F Test: LYMPH #; Value: 2.0; Range: 1.5-4.5; Units: K/mm3; Status: F Test: MONO #; Value: 0.3; Range: 0.0-0.8; Units: K/mm3; Status: F Test: EOS #; Value: 0.6; Range: 0.0-0.50; Abnormal: Above high normal; Units: K/mm3; Status: F Test: BASO #; Value: 0.0; Range: 0.0-0.2; Units: K/mm3; Status: F Test: LARGE UNSTAINED CELL #; Value: 0.2; Range: 0.0-0.4; Units: K/mm3; Status: F Lab Order: MED Profile; SPEC'M 03/22/16 11:36 Test: GLUCOSE, FASTING; Value: 77; Range: 70-105; Units: MG/DL; Status: F Test: BLOOD UREA NITROGEN; Value: 15; Range: 7-18; Units: MG/DL; Status: F Test: CREATININE FOR GFR; Value: 1.30; Range: 0.55-1.02; Abnormal: Above high normal; Units: MG/DL; Status: F Test: GLOMERULAR FILTRATION RATE; Value: 47.6; Range: >58; Abnormal: Below low normal; Status: F Test: SODIUM LEVEL; Value: 143; Range: 136-145; Units: MEQ/L; Status: F Test: POTASSIUM SERUM; Value: 3.6; Range: 3.5-5.1; Units: MEQ/L; Status: F Test: CHLORIDE LEVEL; Value: 105; Range: 98-107; Units: MEQ/L; Status: F Test: CARBON DIOXIDE LEVEL; Value: 28; Range: 21-32; Units: MEQ/L; Status: F Test: ANION GAP; Value: 10; Range: 8-16; Units: MEQ/L; Status: F Test: CALCIUM LEVEL; Value: 9.1; Range: 8.5-10.1; Units: MG/DL; Status: F Test Note: ; Units are mL/min/1.73 m2 Chronic Kidney Disease Staging per NKF: Stage I & II GFR >=60 Normal to Mildly Decreased Stage III GFR 30-59 Moderately Decreased Stage IV GFR 15-29 Severely Decreased Stage V GFR <15 Very Little GFR Left ESRD GFR <15 on VASC TECH Lab Order: CIP; SPEC'M 03/22/16 11:36 Test: CPK CREATINE PHOSPHOKINASE; Value: 48; Range: 26-192; Units: U/L; Status: F Test: CK-MB VALUE MASS; Value: 1.0; Range: 0.0-3.6; Units: NG/ML; Status: F Test: MB/CK RELATIVE INDEX; Value: 2.08; Range: < OR =4; Status: F Test Note: ; DIAGNOSIS CRITERIA MMB ng/ml Relative Index (RI) NON-AMI < or = 5 N/A PETERSON ZONE > 5 < or = 4 AMI > 5 > 4 Lab Order: Troponin; SPEC'M 03/22/16 11:36 Test: TROPONIN I; Value: < 0.02; Range: < 0.10; Units: NG/ML; Status: F Test Note: ; Troponin I Reference Interval for [employer] LOCI: 99th Percentile= 0.00-0.045 ng/ml Risk Stratification: <= 0.10 ng/ml Decreased Risk for Adverse Clinical Events. 0.10-1.50 ng/ml Increased Risk for Adverse Clinical Events. Evaluation of additional criterion and/or repeat testing in 2-6 hours is suggested to rule out myocardial damage. >= 1.50 ng/ml Indicative of Myocardial Injury. Lab Order: Liver Profile; SPEC'M 03/22/16 11:36 Test: AST/SGOT; Value: 17; Range: 15-37; Units: U/L; Status: F Test: ALT/SGPT; Value: 30; Range: 12-78; Units: U/L; Status: F Test: ALKALINE PHOSPHATASE; Value: 93; Range: 45-117; Units: U/L; Status: F Test: BILIRUBIN,TOTAL; Value: 0.6; Range: 0.2-1.0; Units: MG/DL; Status: F Test: BILIRUBIN,DIRECT; Value: 0.1; Range: 0.0-0.2; Units: MG/DL; Status: F Test: TOTAL PROTEIN; Value: 8.0; Range: 6.4-8.2; Units: GM/DL; Status: F Test: ALBUMIN; Value: 4.3; Range: 3.2-5.2; Units: GM/DL; Status: F Test: ALBUMIN/GLOBULIN RATIO; Value: 1.16; Range: 1.00-1.93; Status: F Lab Order: Lipase; SPEC'M 03/22/16 11:36 Test: LIPASE; Value: 240; Range: 73-393; Units: U/L; Status: F Radiology Order: EKG-ADULT Test: EKG-ADULT REASON FOR EXAMINATION: Chest Pain; Stationary ECG Study; [facility] - ED; ; Test Date: 2016-03-22; Pat Name: AKNE CRAWFORD Department:; Room: -; 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 Heart size is normal. EKG; monitoring electrodes overlie the chest. No bony abnormality is seen.; ; Impression:; ; Negative portable chest x-ray.; ; ; Signed by; Gavin Maria MD 03/22/2016 02:06 P; Radiology Order: CT Chest Angio R/O PE Test: CT Chest Angio R/O PE REASON FOR EXAMINATION: cp; CT pulmonary angiogram: With IV contrast.; ; History: Chest pain. History of polycystic kidney disease. Left upper quadrant; pain.; ; Comparison studies: No comparison study.; ; Contrast dose: 100 cc's of Isovue 370 are administered intravenously.; ; CT technique: Helical scanning is acquired and overlapping 1.5 mm and contiguous; 3 mm axial images are reformatted. In addition, a 3-D work station is deployed; to generate thick slab maximum intensity projection images in sagittal and; coronal imaging projections.; ; CT pulmonary angiographic findings: There is good opacification of the pulmonary; arterial tree and there is no CT evidence of pulmonary embolus. The thoracic; aorta enhances homogeneously and is normal in caliber and course. There is no; evidence of hilar or mediastinal mass or adenopathy. There is some residual; thymic tissue in the anterior mediastinum. Maximum intensity projection images; show no evidence of vessel cutoff or filling defect. No infiltrate, mass or; adenopathy is seen in the lungs. There is a granulomatous calcification in the; lingula and some mild linear fibrosis is seen in the right middle lobe and left; lower lobe.; ; The upper poles of each kidney are included in the field of view and there are; multiple low-density lesions consistent with cysts. There are a few parenchymal; calcifications in the upper pole of each kidney as well. No hepatic cyst or; splenic cyst is seen. The tail of the pancreas is unremarkable. No adrenal; lesion is seen.; ; Impression:; ; 1. No CT evidence of pulmonary embolus.; ; 2. Multiple cysts and calcifications in the upper pole of each kidney consistent; with a history of polycystic kidney disease.; ; 3. Granulomatous calcification lingular segment left upper lobe.; ; ; Signed by; Gavin Maria MD 03/22/2016 04:39 P; Radiology Order: CT ABD & PELVIS: IV Contrast Only Test: CT ABD & PELVIS: IV Contrast Only REASON FOR EXAMINATION: luq pain; CT study of the abdomen and pelvis with IV but without oral contrast:; ; History: Left upper quadrant abdominal pain.; ; CT contrast dose: 100 mL of Isovue 370 is administered.; ; Comparison CT study is from September 10, 2005.; ; Findings: The liver and spleen are normal in size and homogeneous in texture on; postcontrast images. No adrenal lesion is seen. The gallbladder is; unremarkable. No pancreatic lesion is seen.; ; The kidneys are abnormal with multiple medium-size cysts and some overall; cortical thinning. They are not particularly enlarged and this may reflect; multicystic kidney disease rather than adult polycystic kidney disease. No; pancreatic splenic or hepatic cyst is seen. Findings are essentially unchanged; from the comparison CT study. There are parenchymal calcifications in both; kidneys. No hydronephrosis or solid mass lesion is seen on either side. Normal; caliber aorta is noted. Small and large intestinal bowel loops are normal in the; upper abdomen. A normal appendix is seen. No abdominal wall defect is observed.; No bony destructive lesion.; ; Impression:; ; Multicystic versus polycystic kidney disease bilaterally. No acute abdominal or; pelvic abnormality.; ; ; Signed by; Gavin Maria MD 03/22/2016 04:55 P; Outcome: 03/22 14:40 Discharge ordered by Provider. 14:48 Discharge Assessment: Patient awake, alert and oriented x 3. No cognitive and/or pml functional deficits noted. Patient verbalized understanding of disposition instructions. patient administered narcotics - no. 14:48 The following High Risk Discharge criteria are identified: None. Discharged to home pml ambulatory. Condition: good Condition: stable. Discharge instructions given to patient, Instructed on discharge instructions, follow up and referral plans. medication usage, Demonstrated understanding of instructions, medications, Pt was receptive of discharge instructions/ teaching. Prescriptions given X 1. No special radiology studies were completed. Property sent home with patient. 14:48 Patient left the ED. pml Signatures: Dispatcher [employer] EDMS Ana De Dios MD MD ml Scott, Debra, DAYA RN Donita Crowell, Reg Reg Cindy Hamm RN RN jc4 Peace Velasco, DIRECTOR OF SOCIAL WORK DIRECTOR OF SOCIAL WORK ct3 [place],Alicia,RN RN pml Breanneen, Adilene, DIRECTOR OF SOCIAL WORK DIRECTOR OF SOCIAL WORK elp Pauly Aj Diane [id number] Corrections: (The following items were deleted from the chart) 11:26 11:25 EKG done per protocol. Performed by ED Staff. Shown to Ana sanders pml 13:19 11:30 General: resting on stretcher, resps easy and unlabored, skin p/w/d. reports pain pml is unchanged. . pml Chart Complete MTDD
--- NOTE | 2016-03-25 11:12 | EDDOCDS ---
Physician Documentation [facility] Name: Devorah Crawford Age: 45 yrs Sex: Female : 1970 Arrival Date: 03/22/2016 Time: 11:00 Bed 12 Private MD: Irma Zavala Disposition: 03/22/16 14:40 Discharged to Home/Self Care. Impression: Chest pain, unspecified, Pleurisy. - Condition is Stable. - Discharge Instructions: Nonspecific Chest Pain, Pleurisy. - Prescriptions for Ibuprofen 600 mg Oral Tablet - take 1 tablet by ORAL route every 8 hours As needed take with food; 20 tablet. - Medication Reconciliation, Local Pharmacy Hours form. - Follow up: Irma Zavala; When: 1 - 2 days. - Problem is new. - Symptoms have improved. - Notes: follow up with dr zavala. return if worsening symptoms Historical: - Allergies: SULFA (SULFONAMIDES) (nausea); - Home Meds: 1. hydrochlorothiazide 12.5 mg Oral cap 1 cap once daily (Last dose: 03/22/2016 09:30) 2. fosinopril oral oral 1 tab once daily (Last dose: 03/22/2016 09:30) 3. venlafaxine 37.5 mg oral cp24 1 cap once daily (Last dose: 03/22/2016 09:30) 4. Advair Diskus 250-50 mcg/dose Inhl dsdv 1 puff 2 times per day (Last dose: 03/21/2016) 5. albuterol sulfate 90 mcg/actuation Inhl aepb 1 puff every 4 hours as needed (Last dose: 03/21/2016) - PMHx: Asthma; Hypertension; Polycystic Kidney Disease; - PSHx: Hysterectomy; Lumpectomy- Right; - Social history: Smoking status: Patient states was never smoker of tobacco. No barriers to communication noted, The patient speaks fluent Pakistani. - Family history: Not pertinent. - : The pt / caregiver states he / she is not on anticoagulants. Home medication list is obtained from the patient. - Exposure Risk Screening:: None identified. 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 3 in. (160.02 cm); Pain 9/; 11:23 BP 169 / 86 (auto/); pml 11:25 Pulse 82 MON; Pulse Ox 97% ; pml 11:38 Pulse 78 MON; Pulse Ox 95% ; pml 11:38 BP 150 / 72 (auto/); pml 11:53 Pulse 72 MON; Pulse Ox 95% ; pml 11:53 BP 138 / 85 (auto/); pml 12:08 Pulse 68 MON; Pulse Ox 96% ; pml 12:08 BP 134 / 81 (auto/); pml 12:23 Pulse 68 MON; Pulse Ox 96% ; pml 12:23 BP 136 / 74 (auto/); pml 12:38 Pulse 68 MON; Pulse Ox 97% ; pml 12:38 BP 133 / 74 (auto/); pml 12:53 Pulse 68 MON; Pulse Ox 96% ; pml 12:53 BP 131 / 72 (auto/); pml 13:18 Pulse 74 MON; Pulse Ox 97% ; pml 13:18 BP 136 / 81 (auto/); pml 13:23 Pulse 72 MON; Pulse Ox 96% ; pml 13:23 BP 128 / 78 (auto/); pml 13:38 Pulse 66 MON; Pulse Ox 96% ; pml 13:38 BP 137 / 80 (auto/); pml 13:53 Pulse 66 MON; Pulse Ox 97% ; pml 13:53 BP 128 / 79 (auto/); pml 14:08 Pulse 68 MON; Pulse Ox 98% ; pml 14:08 BP 123 / 79 (auto/); pml 14:23 Pulse 74 MON; Pulse Ox 97% ; pml 14:23 BP 140 / 73 (auto/); pml 14:46 BP 123 / 71; Pulse 64; Resp 18; Temp 97.7; Pulse Ox 96% ; Pain /10; pml 11:03 Body Mass Index 25.15 (64.41 kg, 160.02 cm) elp MDM: 11:13 ECG WITH READING ER PHYS+CARDIAG ordered. EDMS 11:20 IV Saline Lock ordered. ml 11:20 Roller Picker/Pulse Ox/q 15 min VS ordered. ml 11:20 Rhythm Strip to chart ordered. ml 11:20 CBC with Diff Ordered. EDMS 11:20 MED Profile Ordered. EDMS 11:20 CIP Ordered. EDMS 11:20 Troponin Ordered. EDMS 11:20 Liver Profile Ordered. EDMS 11:20 Lipase Ordered. EDMS 11:21 Chest, 1 View Ordered. EDMS 11:45 [facility] Payment Agreement was scanned into [employer] and attached to record. dm19 11:46 Financial registration complete. dm19 12:41 CBC with Diff Reviewed. ml 12:41 MED Profile Reviewed. ml 12:41 CIP Reviewed. ml 12:41 Troponin Reviewed. ml 12:41 Liver Profile Reviewed. ml 12:41 Lipase Reviewed. ml 12:41 Chest, 1 View Reviewed. ml 12:43 CT Chest Angio R/O PE Ordered. EDMS 13:03 CT ABD & PELVIS: IV Contrast Only Ordered. EDMS 21:09 T-Sheet-- Draft Copy was scanned into [email or web address] and attached to record. r 03/23 09:32 ECG/EKG was scanned into [employer] and attached to record. gb Signatures: Dispatcher [employer] EDNE Ana De Dios MD MD Donita Dozier, Reg Reg gb Cindy Malloy RN RN jc4 Alicia Bustamante RN RN Pauly Otto Diane [email or web address] The chart was reviewed and I authenticate all verbal orders and agree with the evaluation and treatment provided.Attachments: 03/22 11:45 [facility] Payment Agreement dm19 21:09 T-Sheet-- Draft Copy klr 03/23 09:32 ECG/EKG gb Chart Complete MTDD
--- NOTE | 2016-03-25 11:12 | EDDOCDS ---
Physician Documentation [facility] Name: Devorah Crawford Age: 45 yrs Sex: Female : 1970 Arrival Date: 03/22/2016 Time: 11:00 Bed 12 Private MD: Irma Zavala Disposition: 03/22/16 14:40 Discharged to Home/Self Care. Impression: Chest pain, unspecified, Pleurisy. - Condition is Stable. - Discharge Instructions: Nonspecific Chest Pain, Pleurisy. - Prescriptions for Ibuprofen 600 mg Oral Tablet - take 1 tablet by ORAL route every 8 hours As needed take with food; 20 tablet. - Medication Reconciliation, Local Pharmacy Hours form. - Follow up: Irma Zavala; When: 1 - 2 days. - Problem is new. - Symptoms have improved. - Notes: follow up with dr zavala. return if worsening symptoms Historical: - Allergies: SULFA (SULFONAMIDES) (nausea); - Home Meds: 1. hydrochlorothiazide 12.5 mg Oral cap 1 cap once daily (Last dose: 03/22/2016 09:30) 2. fosinopril oral oral 1 tab once daily (Last dose: 03/22/2016 09:30) 3. venlafaxine 37.5 mg oral cp24 1 cap once daily (Last dose: 03/22/2016 09:30) 4. Advair Diskus 250-50 mcg/dose Inhl dsdv 1 puff 2 times per day (Last dose: 03/21/2016) 5. albuterol sulfate 90 mcg/actuation Inhl aepb 1 puff every 4 hours as needed (Last dose: 03/21/2016) - PMHx: Asthma; Hypertension; Polycystic Kidney Disease; - PSHx: Hysterectomy; Lumpectomy- Right; - Social history: Smoking status: Patient states was never smoker of tobacco. No barriers to communication noted, The patient speaks fluent Micronesian. - Family history: Not pertinent. - : The pt / caregiver states he / she is not on anticoagulants. Home medication list is obtained from the patient. - Exposure Risk Screening:: None identified. CROP SPECIALIST: 03/22 11:10 LMP N/A - Hysterectomy [id number] Vital Signs: 11:03 BP 153 / 91; Pulse 77; Resp 18; Temp 96.9; Pulse Ox 99% ; Weight 64.41 kg / 142 lbs; elp Height 5 ft. 3 in. (160.02 cm); Pain 9/; 11:23 BP 169 / 86 (auto/); pml 11:25 Pulse 82 MON; Pulse Ox 97% ; pml 11:38 Pulse 78 MON; Pulse Ox 95% ; pml 11:38 BP 150 / 72 (auto/); pml 11:53 Pulse 72 MON; Pulse Ox 95% ; pml 11:53 BP 138 / 85 (auto/); pml 12:08 Pulse 68 MON; Pulse Ox 96% ; pml 12:08 BP 134 / 81 (auto/); pml 12:23 Pulse 68 MON; Pulse Ox 96% ; pml 12:23 BP 136 / 74 (auto/); pml 12:38 Pulse 68 MON; Pulse Ox 97% ; pml 12:38 BP 133 / 74 (auto/); pml 12:53 Pulse 68 MON; Pulse Ox 96% ; pml 12:53 BP 131 / 72 (auto/); pml 13:18 Pulse 74 MON; Pulse Ox 97% ; pml 13:18 BP 136 / 81 (auto/); pml 13:23 Pulse 72 MON; Pulse Ox 96% ; pml 13:23 BP 128 / 78 (auto/); pml 13:38 Pulse 66 MON; Pulse Ox 96% ; pml 13:38 BP 137 / 80 (auto/); pml 13:53 Pulse 66 MON; Pulse Ox 97% ; pml 13:53 BP 128 / 79 (auto/); pml 14:08 Pulse 68 MON; Pulse Ox 98% ; pml 14:08 BP 123 / 79 (auto/); pml 14:23 Pulse 74 MON; Pulse Ox 97% ; pml 14:23 BP 140 / 73 (auto/); pml 14:46 BP 123 / 71; Pulse 64; Resp 18; Temp 97.7; Pulse Ox 96% ; Pain /10; pml 11:03 Body Mass Index 25.15 (64.41 kg, 160.02 cm) elp MDM: 11:13 ECG WITH READING ER PHYS+CARDIAG ordered. EDMS 11:20 IV Saline Lock ordered. ml 11:20 Financial Reporting Advisor/Pulse Ox/q 15 min VS ordered. ml 11:20 Rhythm Strip to chart ordered. ml 11:20 CBC with Diff Ordered. EDMS 11:20 MED Profile Ordered. EDMS 11:20 CIP Ordered. EDMS 11:20 Troponin Ordered. EDMS 11:20 Liver Profile Ordered. EDMS 11:20 Lipase Ordered. EDMS 11:21 Chest, 1 View Ordered. EDMS 11:45 [facility] Payment Agreement was scanned into [employer] and attached to record. [id number] 11:46 Financial registration complete. dm19 12:41 CBC with Diff Reviewed. ml 12:41 MED Profile Reviewed. ml 12:41 CIP Reviewed. ml 12:41 Troponin Reviewed. ml 12:41 Liver Profile Reviewed. ml 12:41 Lipase Reviewed. ml 12:41 Chest, 1 View Reviewed. ml 12:43 CT Chest Angio R/O PE Ordered. EDMS 13:03 CT ABD & PELVIS: IV Contrast Only Ordered. EDMS 21:09 T-Sheet-- Draft Copy was scanned into [employer] and attached to record. r 03/23 09:32 ECG/EKG was scanned into [employer] and attached to record. gb Signatures: Dispatcher [employer] EDCT Ana De Dios MD MD Donita Dozier, Reg Reg gb Cindy Malloy RN RN [email or web address] Alicia Bustamante RN RN Pauly Otto Diane [email or web address] The chart was reviewed and I authenticate all verbal orders and agree with the evaluation and treatment provided.Attachments: 03/22 11:45 [facility] Payment Agreement dm19 21:09 T-Sheet-- Draft Copy klr 03/23 09:32 ECG/EKG gb Chart Complete MTDD
== END 2016-03-22 14:48 | disposition home or self-care (01) ==
LOC: M ED 11:00
DX: R07.9 Chest pain, unspecified (principal); R09.1 Pleurisy; I10 Essential (primary) hypertension; J45.909 Unspecified asthma, uncomplicated; Q61.3 Polycystic kidney, unspecified; Z79.899 Other long term (current) drug therapy; Z79.51 Long term (current) use of inhaled steroids; Z88.2 Allergy status to sulfonamides
CPT/HCPCS: 36415; 71010; 71275; 74177; 80048; 80076; 82550; 82553; 83690; 85025; 93005; 93041; 99284; Q9967

== ENCOUNTER → 2016-04-03 | Outpatient (REF) | payer BC, OTHER | LOC: M LAB REF 16:32 | PROVIDERS: ATTEND Nurse Practitioner Family | DX: R07.1 Chest pain on breathing (principal); R06.02 Shortness of breath ==

== ENCOUNTER → 2016-10-30 | Outpatient (REF) | payer BC, OTHER ==
[~2016-10-30] MED LIST changes: +IBUP-1022 PO; -IBUP600T26 PO; +NORC1TAB4 PO; -NORC5TAB PO; -PROA1AER IN; +PROAAER10 IN
== END ==
LOC: M LAB REF 17:29
PROVIDERS: ATTEND Internal Medicine
DX: M25.50 Pain in unspecified joint (principal)

== ENCOUNTER → 2016-11-11 | Outpatient (CLI) | payer BC, OTHER ==
[2016-11-11 09:20] LABS: CALCIUM LEVEL 8.9 MG/DL (8.5-10.1); CREATININE FOR GFR 1.37 MG/DL (0.55-1.02); GLOMERULAR FILTRATION RATE 44.6 (>58); POTASSIUM SERUM 3.4 MEQ/L (3.5-5.1)
--- NOTE | 2016-11-11 20:44 | ECGEPIP ---
Stationary ECG Study [facility] Test Date: 2016-11-11 Pat Name: KANE NELSON Department: Room: - Gender: F Foreign Diplomat: CHRISTOPHE : 1970 Requested By: Rickey Tran Order Number: [id number] Reading MD: Buddy Reyes Measurements Intervals [place] Rate: 79 P: 53 AR: 142 QRS: 72 QRSD: 85 T: 59 QT: 371 QTc: 428 Interpretive Statements SINUS RHYTHM Poor R-wave progression, POSSIBLE ANTERIOR MYOCARDIAL INFARCTION, PROBABLY OLD Electronically Signed On 11-11-2016 20:44:10 EDT by Buddy Reyes
== END ==
LOC: M LAB 08:36
PROVIDERS: ATTEND Orthopaedic Surgery
DX: G56.01 Carpal tunnel syndrome, right upper limb (principal); I10 Essential (primary) hypertension; N28.9 Disorder of kidney and ureter, unspecified

== ENCOUNTER → 2017-06-03 | Outpatient (CLI) | payer BC, OTHER | LOC: M RAD 11:32 | DX: N18.3 Chronic kidney disease, stage 3 (moderate) (principal); Q61.2 Polycystic kidney, adult type; I15.0 Renovascular hypertension | CPT/HCPCS: 76775 ==

== ENCOUNTER → 2019-06-07 | Outpatient (REF) | payer OTHER ==
[~2019-06-07] MED LIST changes: -FOSI1TAB8 PO; +FOSI20TA60 PO; -MONT10TA2 PO; +MONT10TA4 PO; -NORC1TAB4 PO; +NORC1TAB7 PO; -OMEP40CA2 PO; +OMEP40CA97 PO
== END ==
LOC: M LAB REF 17:43
PROVIDERS: ATTEND Internal Medicine
DX: M79.10 Myalgia, unspecified site (principal)

== ENCOUNTER → 2019-07-05 | Outpatient (CLI) | payer BC, OTHER ==
--- NOTE | 2019-07-07 12:40 | SLEEPHOME ---
DATE OF STUDY: 07/05/2019 ORDERING PROVIDER: AUGUSTA Krishnamurthy Nocturnal diagnostic home sleep testing was performed due to concern for the obstructive sleep apnea syndrome in this patient with a history of same. For testing, a nocturnal T3 respiratory monitoring device was used. Continuous record was made of pulse, oxygen saturation, airflow, chest and abdominal strain, and body position. 9 hours and 59 minutes of data were reviewed. There were 4 hours and 38 minutes marked as time in bed. During the interval marked time in bed, there were 38 respiratory events identified of 10 seconds in duration or greater for a respiratory event index of 8.2. The events were primarily obstructive. Eleven mixed and central apneas were also noted. Baseline pulse rate was 56; pulse rate ranged 46-90. Baseline saturation 94%. Saturations fell to 87%. Testing was performed in both the supine and nonsupine positions. IMPRESSION: Abnormal home sleep testing with repetitive respiratory events and oxygen desaturations to 87% with a respiratory event index of 8.2 is consistent with the obstructive sleep apnea syndrome. RECOMMENDATION: The patient should be encouraged to undergo formal sleep evaluation and pressure titration if elected and in-laboratory monitoring would be recommended if given the frequency of central events identified.
== END ==
LOC: M SLEEP HO 08:05
PROVIDERS: ATTEND Physician Assistant
DX: G47.33 Obstructive sleep apnea (adult) (pediatric) (principal)

== ENCOUNTER → 2019-09-01 | Outpatient (CLI) | payer BC, OTHER ==
[~2019-09-01] MED LIST changes: +MONT10TA10 PO; -MONT10TA4 PO
--- NOTE | 2019-09-08 12:54 | SLEEPCENT ---
DATE OF STUDY: 09/01/2019 ORDERED BY: Kwabena Mazariegos Nocturnal polysomnography was performed for the titration of pressure therapy in this patient with a clinical diagnosis of obstructive sleep apnea syndrome confirmed by home testing revealing a respiratory event index of 8.2 with oxygen desaturations to 87%. For testing, the patient was fit with a [employer] full-face mask of small size, 4 cm of water pressure were applied to the circuit and the lights were extinguished. 7 hours and 54 minutes of data were reviewed. There were 403 minutes of sleep identified. Sleep latency was short at 3.5 minutes. REM latency was prolonged at 185 minutes. Sleep architecture was fair. There were 3 REM cycles noted. Multiple brief arousals were appreciated. Overall sleep efficiency was 88.1%. The electrocardiogram showed a sinus rhythm with small complexes. Average heart rate 55 beats per minute. Rate ranged 40-70. Electroencephalogram (EEG) showed some mild coarsening in background, no focal events were identified. Respiratory events were reasonably palliated with C-PAP at a pressure of +9 and no significant limb activity appreciated. IMPRESSION: Obstructive sleep apnea syndrome (G47.33). RECOMMENDATION: Nightly use of pressure therapy at 9 cm of water.
== END ==
LOC: M SLEEP 20:00
PROVIDERS: ATTEND Physician Assistant
DX: G47.33 Obstructive sleep apnea (adult) (pediatric) (principal)

== ENCOUNTER → 2020-05-21 | Outpatient (REF) | payer OTHER, BC ==
[2020-05-22 23:06] LABS: ANTINUCLEAR ANTIBODIES DIRECT Negative (Negative); CYCLIC CITRULLINATED PEPTIDE 4 units (0-19)
== END ==
LOC: M LAB REF 12:30
PROVIDERS: ATTEND Internal Medicine
DX: M25.50 Pain in unspecified joint (principal)

== ENCOUNTER → 2020-06-07 | Outpatient (CLI) | payer BC, OTHER ==
--- NOTE | 2020-06-07 15:08 | REP ---
INDICATION: POLYCYSTIC KIDNEY, HEMATURIA, BACK PAIN rule out cyst rupture, calculi, pyelonephritis. COMPARISON: Comparison CT study March 22, 2016.. TECHNIQUE: Helical scanning is acquired in 4 mm axial images were reformatted. Coronal and sagittal MPR images were generated and reviewed. FINDINGS: Preliminary digital marketing automation analyst radiograph shows an unremarkable bowel gas pattern. The lung bases are clear on axial CT images. No pleural effusion or upper abdominal ascites is seen. The liver and the spleen are normal in size homogeneous in texture. No focal hepatic or splenic lesion is seen. No abnormality is noted in the pancreas. Gallbladder is unremarkable. There are innumerable cysts throughout the mildly enlarged bilateral kidneys unchanged from prior study 2017. There do not appear to be hepatic or pancreatic cysts. Many of the renal cysts show focal calcification. No renal mass lesion is observed. There is no evidence of extravasated fluid in the perinephric fat. There is no evidence of hydronephrosis or hydroureter. Urinary bladder is unremarkable. The uterus is surgically absent. No adnexal abnormality is seen. Small and large bowel loops are unremarkable in the abdomen and pelvis. Normal appendix is seen in the right central pelvis. No abdominal wall defect is seen. No bony destructive lesion is observed. IMPRESSION: Stable polycystic kidney changes bilaterally. No renal mass hydronephrosis or CT evidence of pyelonephritis or abscess seen. No acute abdominal or pelvic abnormality. <Electronically signed by Rex Maria > 06/07/20 [id number]
== END ==
LOC: M RAD 14:33
PROVIDERS: ATTEND Nurse Practitioner Family
DX: Q61.2 Polycystic kidney, adult type (principal); M54.5 Low back pain

== ENCOUNTER → 2020-06-21 | Outpatient (CLI) | payer BC, OTHER ==
[~2020-06-21] MED LIST changes: +PROHANCE 279.3MG/ML 5ML VIAL As Ordered ONE
--- NOTE | 2020-06-21 17:06 | REP ---
INDICATION: FAM HISTORY OF MALIGNANT NEOPLASM OF BREAST. COMPARISON: Mammogram 07/15/2017. TECHNIQUE: Three Maryam MRI imaging was performed with a dedicated breast coil. Axial, coronal, and sagittal T1 and T2 weighted scans were obtained with and without fat saturation in the usual fashion. The study includes dynamically acquired post gadolinium-enhanced imaging with image subtraction. Maximum intensity projection and multi planar reformation imaging is included as well. This study is interpreted with the aid of [employer], an FDA approved computer aided detection (CAD) software program, on a dedicated breast MRI workstation. The gadolinium enhancement dose is 6 mL of intravenous ProHance. FINDINGS: There is moderate fibroglandular tissue bilaterally. There is no axillary adenopathy bilaterally. No significant cystic changes seen in either breast. There is very mild background parenchymal enhancement bilaterally. There is no suspicious enhancing mass or morphologic abnormality. IMPRESSION: BI-RADS category 1, negative breast MRI. No suspicious enhancing mass or morphologic abnormality. <Electronically signed by Gary Beck > 06/21/20 [id number]
== END ==
LOC: M RAD 12:33
PROVIDERS: ATTEND Internal Medicine
DX: N60.89 Other benign mammary dysplasias of unspecified breast (principal)
CPT/HCPCS: A9576; C8908

== ENCOUNTER → 2020-12-04 | Outpatient (REF) | payer BC, OTHER ==
[~2020-12-04] MED LIST changes: +OMEP40CA4 PO; -OMEP40CA97 PO; -PROHANCE 279.3MG/ML 5ML VIAL As Ordered ONE
== END ==
LOC: M LAB REF 13:25
PROVIDERS: ATTEND Nurse Practitioner Family
DX: E83.42 Hypomagnesemia (principal)

== ENCOUNTER → 2021-03-05 | Outpatient (REF) | payer OTHER, BC | LOC: M LAB REF 12:50 | PROVIDERS: ATTEND Nurse Practitioner Family | DX: E83.42 Hypomagnesemia (principal) ==

== ENCOUNTER → 2021-09-24 | Outpatient (REF) | payer BC, OTHER ==
[~2021-09-24] MED LIST changes: -MONT10TA10 PO; +MONT10TA97 PO
[2021-09-24 20:26] LABS: POTASSIUM SERUM 3.9 MEQ/L (3.5-5.1)
== END ==
LOC: M LAB REF 18:10
PROVIDERS: ATTEND Nurse Practitioner Family
DX: N18.31 Chronic kidney disease, stage 3a (principal); I15.0 Renovascular hypertension; R60.0 Localized edema

== ENCOUNTER → 2021-11-12 | Outpatient (CLI) | payer OTHER, BC | LOC: M RAD 14:43 | PROVIDERS: ATTEND Nurse Practitioner Family | DX: M25.59 Pain in other specified joint (principal); R21 Rash and other nonspecific skin eruption; M54.50 Low back pain, unspecified; Q61.3 Polycystic kidney, unspecified ==

== ENCOUNTER → 2022-04-16 | Outpatient (CLI) | payer BC, OTHER ==
[2022-04-17 09:54] LABS: BASO % 0.8 % (0.0-1.0); EOS # 0.4 10^3/uL (0.0-0.5); EOS % 7.1 % (0.0-3.0); HEMATOCRIT 41.5 % (36.0-47.0); LYMPH # 2.4 10^3/uL (1.5-5.0); LYMPH % 38.5 % (24.0-44.0); MEAN CORPUSCULAR HEMOGLOBIN 31.7 pg (27.0-33.0); MEAN CORPUSCULAR HGB CONC 33.7 g/dl (32.0-36.5); MEAN CORPUSCULAR VOLUME 93.9 fl (80.0-96.0); MONO # 0.5 10^3/uL (0.0-0.8); MONO % 8.3 % (2.0-8.0); NEUTROPHILS # 2.8 10^3/uL (1.5-8.5); NEUTROPHILS % 45.1 % (36.0-66.0); PLATELET COUNT, AUTOMATED 223 10^3/uL (150-450); RED BLOOD COUNT 4.42 10^6/uL (4.00-5.40); WHITE BLOOD COUNT 6.2 10^3/uL (4.0-10.0)
[2022-04-17 09:55] LABS: BASO # 0.1 10^3/uL (0.0-0.2)
[2022-04-17 10:18] LABS: ERYTHROCYTE SEDIMENTATION RATE 12 mm/hr (0-20)
[2022-04-17 10:30] LABS: C REACTIVE PROTEIN QUANTITATIV < 0.40 MG/DL (<1.0)
[2022-04-17 10:31] LABS: RHEUMATOID FACTOR QUANT < 3.5 IU/ML (<14)
[2022-04-17 10:32] LABS: ALBUMIN 4.1 G/DL (3.2-5.2); ALKALINE PHOSPHATASE 97 U/L (46-116); ALT/SGPT 26 U/L (7.0-40); AST/SGOT 24 U/L (<34); BILIRUBIN,TOTAL 0.5 MG/DL (0.3-1.2); BLOOD UREA NITROGEN 25 MG/DL (9-23); CALCIUM LEVEL 8.4 MG/DL (8.5-10.1); CARBON DIOXIDE LEVEL 27 MMOL/L (20-31); CHLORIDE LEVEL 103 MMOL/L (98-107); CREATININE FOR GFR 1.44 MG/DL (0.55-1.30); GLOMERULAR FILTRATION RATE 41.2 (>58); GLUCOSE, FASTING 97 MG/DL (60-100); SODIUM LEVEL 138 MMOL/L (136-145); TOTAL PROTEIN 7.4 G/DL (5.7-8.2)
[2022-04-17 10:58] LABS: FREE T4 0.91 NG/DL (0.89-1.76); THYROID STIMULATING HORMONE 2.876 uIU/ML (0.55-4.78)
[2022-04-17 10:59] LABS: CPK CREATINE PHOSPHOKINASE 59 U/L (34-145)
[2022-04-18 15:10] LABS: ANTINUCLEAR ANTIBODIES DIRECT Negative (Negative)
== END ==
LOC: M WUC 15:31
PROVIDERS: ATTEND Registered Nurse
DX: R21 Rash and other nonspecific skin eruption (principal); Z00.00 Encounter for general adult medical examination without abnormal findings

== ENCOUNTER → 2022-10-29 | Outpatient (REF) | payer OTHER, BC ==
[2022-10-29 10:28] LABS: ALBUMIN 4.1 G/DL (3.2-5.2); BILIRUBIN,TOTAL 0.6 MG/DL (0.3-1.2); CALCIUM LEVEL 9.2 MG/DL (8.5-10.1); CHOLESTEROL RISK RATIO 3.9 (<5); CREATININE FOR GFR 1.54 MG/DL (0.55-1.30); HDL CHOLESTEROL 61.9 MG/DL (>40); LDL CHOLESTEROL 151.9 MG/DL (<100); NON-HDL-C 180.1 MG/DL; POTASSIUM SERUM 4.4 MMOL/L (3.5-5.1); TOTAL PROTEIN 7.1 G/DL (5.7-8.2)
== END ==
LOC: M LABWUC 09:28
PROVIDERS: ATTEND Registered Nurse
DX: I10 Essential (primary) hypertension (principal)

== ENCOUNTER → 2023-05-18 | Outpatient (CLI) | payer OTHER, BC | LOC: M SOG 07:51 | PROVIDERS: ATTEND Orthopaedic Surgery | DX: M25.551 Pain in right hip (principal); M25.552 Pain in left hip ==

== ENCOUNTER → 2023-05-21 | Outpatient (CLI) | payer BC ==
[~2023-05-21] MED LIST changes: +PROHANCE 279.3MG/ML 15ML VIAL ONE
== END ==
LOC: M PLAIMG 12:13
PROVIDERS: ATTEND Registered Nurse
DX: Z86.000 Personal history of in-situ neoplasm of breast (principal)
CPT/HCPCS: A9576; C8908

== ENCOUNTER → 2023-06-04 | Outpatient (CLI) | payer BC ==
[~2023-06-04] MED LIST changes: -PROHANCE 279.3MG/ML 15ML VIAL ONE
== END ==
LOC: M PLAIMG 06:57
PROVIDERS: ATTEND Orthopaedic Surgery
DX: S73.191A Other sprain of right hip, initial encounter (principal); M16.11 Unilateral primary osteoarthritis, right hip; Y93.9 Activity, unspecified; Y92.9 Unspecified place or not applicable

== ENCOUNTER → 2023-06-30 | Outpatient (CLI) | payer BC ==
[2023-06-30 12:51] LABS: CHOLESTEROL RISK RATIO 4.46 (<5); LDL CHOLESTEROL 140.8 MG/DL (<100)
== END ==
LOC: M WUC 08:22
PROVIDERS: ATTEND Registered Nurse
DX: E78.2 Mixed hyperlipidemia (principal)

== ENCOUNTER → 2023-07-08 | Outpatient (CLI) | payer BC ==
[~2023-07-08] MED LIST changes: +ISOVUE-300 61% 100ML VIAL As Ordered ONE; +LIDOCAINE 1% MDV 20ML VIAL As Ordered ONE; +methylPREDNISolone SUSP 40MG/ML 1ML VIAL (DEPO MEDROL) As Ordered ONE
== END ==
LOC: M RAD 12:47
PROVIDERS: ATTEND Orthopaedic Surgery
DX: M25.551 Pain in right hip (principal)
CPT/HCPCS: 20610; 77002; J0665; J1010; Q9967

== ENCOUNTER → 2024-05-05 | Outpatient (CLI) | payer BC ==
[~2024-05-05] MED LIST changes: -ISOVUE-300 61% 100ML VIAL As Ordered ONE; -LIDOCAINE 1% MDV 20ML VIAL As Ordered ONE; -methylPREDNISolone SUSP 40MG/ML 1ML VIAL (DEPO MEDROL) As Ordered ONE
[2024-05-05 11:02] LABS: ALBUMIN 3.8 G/DL (3.2-5.2); BILIRUBIN,TOTAL 0.5 MG/DL (0.3-1.2); CALCIUM LEVEL 9.3 MG/DL (8.5-10.1); CHOLESTEROL RISK RATIO 4.6 (<5); CREATININE FOR GFR 1.55 MG/DL (0.55-1.30); GLOMERULAR FILTRATION RATE 37.5 (>51); HDL CHOLESTEROL 53.6 MG/DL (>40); NON-HDL-C 193.4 MG/DL; POTASSIUM SERUM 4.4 MMOL/L (3.5-5.1); TOTAL PROTEIN 6.9 G/DL (5.7-8.2)
== END ==
LOC: M WUC 08:47
PROVIDERS: ATTEND Nurse Practitioner Family
DX: I10 Essential (primary) hypertension (principal); E78.2 Mixed hyperlipidemia

== ENCOUNTER → 2024-05-13 | Outpatient (CLI) | payer BC ==
[~2024-05-13] MED LIST changes: +ISOVUE-370 76% 100ML VIAL As Ordered ONE
[2024-05-13 12:40] LABS: BASO # 0.1 10^3/uL (0.0-0.2); BASO % 0.9 % (0.0-1.0); EOS # 0.9 10^3/uL (0.0-0.5); EOS % 14.8 % (0.0-3.0); HEMATOCRIT 40.8 % (36.0-47.0); HEMOGLOBIN 13.9 g/dl (12.0-15.5); LYMPH # 2.1 10^3/uL (1.5-5.0); LYMPH % 37.2 % (24.0-44.0); MEAN CORPUSCULAR HEMOGLOBIN 31.7 pg (27.0-33.0); MEAN CORPUSCULAR HGB CONC 34.1 g/dl (32.0-36.5); MEAN CORPUSCULAR VOLUME 92.9 fl (80.0-96.0); MONO # 0.4 10^3/uL (0.0-0.8); MONO % 7.2 % (2.0-8.0); NEUTROPHILS # 2.3 10^3/uL (1.5-8.5); NEUTROPHILS % 39.7 % (36.0-66.0); PLATELET COUNT, AUTOMATED 227 10^3/uL (150-450); RED BLOOD COUNT 4.39 10^6/uL (4.00-5.40); WHITE BLOOD COUNT 5.7 10^3/uL (4.0-10.0)
[2024-05-13 13:09] LABS: ALBUMIN 3.8 G/DL (3.2-5.2); BILIRUBIN,TOTAL 0.3 MG/DL (0.3-1.2); CALCIUM LEVEL 8.8 MG/DL (8.5-10.1); CREATININE FOR GFR 1.54 MG/DL (0.55-1.30); GLOMERULAR FILTRATION RATE 37.8 (>51); POTASSIUM SERUM 4.3 MMOL/L (3.5-5.1); TOTAL PROTEIN 6.9 G/DL (5.7-8.2)
== END ==
LOC: M RAD 11:55
PROVIDERS: ATTEND Registered Nurse
DX: R10.12 Left upper quadrant pain (principal)
CPT/HCPCS: 36415; 74177; 80053; 82150; 83690; 85025; Q9967

== ENCOUNTER → 2024-05-17 | Outpatient (REF) | payer BC, OTHER ==
[~2024-05-17] MED LIST changes: -ISOVUE-370 76% 100ML VIAL As Ordered ONE
[2024-05-17 13:24] LABS: APPEARANCE, URINE CLEAR (CLEAR); BACTERIA, URINE AUTO NEGATIVE (NEGATIVE); BILIRUBIN, URINE AUTO NEGATIVE (NEGATIVE); BLOOD, URINE BLOOD 1+ (NEGATIVE); COLOR, URINE STRAW (YELLOW); GLUCOSE, URINE (UA) AUTO NEGATIVE (NEGATIVE); KETONE, URINE AUTO NEGATIVE (NEGATIVE); LEUKOCYTE ESTERASE, URINE AUTO NEGATIVE (NEGATIVE); MUCUS, URINE SMALL (NEGATIVE); NITRITE, URINE AUTO NEGATIVE (NEGATIVE); PROTEIN, URINE AUTO NEGATIVE (NEGATIVE); RBC, URINE AUTO 0 /HPF (0-3); SPECIFIC GRAVITY URINE AUTO 1.003 (1.002-1.035); SQUAMOUS EPITHELIAL CELL UR AU 0 /HPF (0-6); UROBILINOGEN, URINE AUTO 0.2 mg/dL (0.0-2.0); WBC, URINE AUTO 0 /HPF (0-3)
== END ==
LOC: M LAB REF 12:16
PROVIDERS: ATTEND Registered Nurse
DX: Q61.3 Polycystic kidney, unspecified (principal)

== ENCOUNTER → 2024-06-01 | Outpatient (REF) | payer BC, OTHER ==
[2024-06-01 18:11] LABS: APPEARANCE, URINE CLEAR (CLEAR); BACTERIA, URINE AUTO NEGATIVE (NEGATIVE); BILIRUBIN, URINE AUTO NEGATIVE (NEGATIVE); BLOOD, URINE BLOOD 1+ (NEGATIVE); COLOR, URINE COLORLESS (YELLOW); GLUCOSE, URINE (UA) AUTO NEGATIVE (NEGATIVE); KETONE, URINE AUTO NEGATIVE (NEGATIVE); LEUKOCYTE ESTERASE, URINE AUTO NEGATIVE (NEGATIVE); NITRITE, URINE AUTO NEGATIVE (NEGATIVE); PROTEIN, URINE AUTO NEGATIVE (NEGATIVE); RBC, URINE AUTO 4 /HPF (0-3); SPECIFIC GRAVITY URINE AUTO 1.003 (1.002-1.035); SQUAMOUS EPITHELIAL CELL UR AU 0 /HPF (0-6); UROBILINOGEN, URINE AUTO 0.2 mg/dL (0.0-2.0); WBC, URINE AUTO 0 /HPF (0-3)
== END ==
LOC: M LAB REF 17:03
PROVIDERS: ATTEND Physician Assistant
DX: R31.29 Other microscopic hematuria (principal)

== ENCOUNTER → 2024-07-06 | Outpatient (REF) | payer OTHER | LOC: M SMT 15:04 | PROVIDERS: ATTEND Urology | DX: R31.29 Other microscopic hematuria (principal) ==

== ENCOUNTER → 2024-11-11 | Outpatient (CLI) | payer OTHER ==
[~2024-11-11] MED LIST changes: -IBUP-1022 PO; +IBUP600T42 PO
== END ==
LOC: M WUC 09:39
PROVIDERS: ATTEND Registered Nurse
DX: M54.50 Low back pain, unspecified (principal)

== ENCOUNTER 2024-12-01 04:43 | Inpatient (IN) | payer BC, OTHER ==
[~2024-12-01] VITALS: Ht 160 cm; Wt 72.0 kg
[2024-12-01] MEDS: MAG SULF 1GM/100ML (MAG RUN) 1 GM in IV 1 EA IV SCH (05:34)
[2024-12-01 05:38] LABS: VENOUS BASE EXCESS -5.7 (-2.0-2.0); VENOUS HCO3 19.6 MMOL/L (23.0-27.0); VENOUS O2 SATURATION 91.3 % (60.0-80.0); VENOUS PARTIAL PRESSURE CO2 38.1 mmHg (38.0-50.0); VENOUS PARTIAL PRESSURE O2 66.5 mmHg (30.0-50.0); VENOUS PH 7.330 UNITS (7.330-7.430); VENOUS STANDARD HCO3 19.7 MMOL/L; VENOUS TOTAL CO2 20.8 MMOL/L (24.0-28.0)
[2024-12-01 05:42] LABS: BASO # 0.0 10^3/uL (0.0-0.2); BASO % 0.3 % (0.0-1.0); EOS # 0.0 10^3/uL (0.0-0.5); EOS % 0.3 % (0.0-3.0); LYMPH # 0.4 10^3/uL (1.5-5.0); LYMPH % 6.8 % (24.0-44.0); MONO # 0.1 10^3/uL (0.0-0.8); MONO % 1.7 % (2.0-8.0); NEUTROPHILS # 5.3 10^3/uL (1.5-8.5); NEUTROPHILS % 90.6 % (36.0-66.0); PLATELET COUNT, AUTOMATED 198 10^3/uL (150-450)
[2024-12-01] MEDS: ALBUTEROL SULFATE 2.5 MG/0.5 ML INH CONCENTRATE NEB SOLN INH ONE (05:57)
[2024-12-01] MEDS: BUDESONIDE 0.5 MG/2 ML INHALATION SUSPENSION NEB ONE (05:57)
[2024-12-01 06:09] LABS: CK-MB VALUE MASS 1.5 NG/ML (<3.6)
[2024-12-01 06:10] LABS: ALT/SGPT 20.0 U/L (7.0-40); AST/SGOT 19.0 U/L (<34); CALCIUM LEVEL 8.9 MG/DL (8.5-10.1); CARBON DIOXIDE LEVEL 24.0 MMOL/L (20-31); CHLORIDE LEVEL 105.0 MMOL/L (98-107); CPK CREATINE PHOSPHOKINASE 85.0 U/L (34-145); CREATININE FOR GFR 1.64 MG/DL (0.55-1.30); GLOMERULAR FILTRATION RATE 37.4 (>51); MB/CK RELATIVE INDEX 1.76 (< OR =4); POTASSIUM SERUM 4.1 MMOL/L (3.5-5.1); SODIUM LEVEL 136.0 MMOL/L (136-145)
[2024-12-01 09:58] LABS: CK-MB VALUE MASS 1.7 NG/ML (<3.6)
[2024-12-01 10:05] LABS: CPK CREATINE PHOSPHOKINASE 69.0 U/L (34-145); MB/CK RELATIVE INDEX 2.46 (< OR =4)
[2024-12-01] MEDS ORDERED: ALBUTEROL SULFATE 2.5 MG/0.5 ML INH CONCENTRATE NEB SOLN NEB PRN (10:15)
[2024-12-01] MEDS ORDERED: VENL150C43 PO (10:27)
[2024-12-01] MEDS ORDERED: FOSI40TA59 PO (10:27)
[2024-12-01] MEDS ORDERED: AMIL5TAB4 PO (10:27)
[2024-12-01] MEDS ORDERED: FURO20TA2 PO (10:27)
[2024-12-01] MEDS ORDERED: ALLO100T PO (10:27)
[2024-12-01] MEDS ORDERED: VENTAER INH (10:27)
[2024-12-01] MEDS ORDERED: VENL37.598 PO (10:27)
[2024-12-01] MEDS ORDERED: OMEP-173 PO (10:27)
[2024-12-01] MEDS ORDERED: ISOVUE-370 76% 100 ML VIAL As Ordered ONE (11:16)
[2024-12-01] MEDS: NS (Normal Saline) 0.9% 1,000 ML IV ONE (12:24)
[2024-12-01] MEDS ORDERED: BREO PO (12:40)
[2024-12-01] MEDS ORDERED: HOME MED LIST COMPLETE! XX SCH (12:45)
[2024-12-01] MEDS ORDERED: OMEPRAZOLE 20MG CAP PO PRN (13:05)
[2024-12-01] MEDS: ALBUTEROL SULFATE 2.5 MG/0.5 ML INH CONCENTRATE NEB SOLN NEB SCH (13:30)
[2024-12-01] MEDS: NS (Normal Saline) 0.9% 1,000 ML IV SCH (13:32)
[2024-12-01 13:39] LABS: ABG BASE EXCESS -5.9 (-2.0-2.0); ABG HCO3 18.2 MMOL/L (22.0-26.0); ABG O2 SATURATION 94.9 % (95.0-99.0); ABG PARTIAL PRESSURE CO2 32.2 mmHg (35.0-45.0); ABG PARTIAL PRESSURE O2 77.8 mmHg (75.0-100.0); ABG STANDARD HCO3 19.6 MMOL/L. (22.0-26.0); ABG TOTAL CO2 19.2 MMOL/L (22.0-29.0); ABG pH (ARTERIAL) 7.371 UNITS (7.350-7.450)
[2024-12-01] MEDS: ACETAMINOPHEN 325 MG TAB PO PRN (13:40)
[2024-12-01] MEDS: VENLAFAXINE **XR** 37.5 MG CAPSULE PO SCH (13:40)
[2024-12-01] MEDS: VENLAFAXINE **XR** 75MG CAPSULE PO SCH (13:40)
[2024-12-01 15:10] VITALS: BP 158/75; TEMP 97; O2SAT 96
[2024-12-01] MEDS: BUDESONIDE 180 MCG INHALER INH SCH (19:10)
[2024-12-01 20:00] VITALS: BP 125/79; TEMP 97.6; O2SAT 95
[2024-12-01] MEDS: guaiFENesin ER TABLET 600 MG TAB PO SCH (20:04)
[2024-12-01] MEDS: HEPARIN SOD 5000 UNITS/ML 1 ML VIAL/SYRINGE SC SCH (20:04)
[2024-12-02] VITALS (14 sets, daily range): BP systolic 128–148; BP diastolic 66–87; TEMP 97.3–98; O2SAT 92–98
[2024-12-02 04:56] LABS: PLATELET COUNT, AUTOMATED 222 10^3/uL (150-450)
[2024-12-02 05:30] LABS: CALCIUM LEVEL 8.3 MG/DL (8.5-10.1); CARBON DIOXIDE LEVEL 24.0 MMOL/L (20-31); CHLORIDE LEVEL 112.0 MMOL/L (98-107); CREATININE FOR GFR 1.43 MG/DL (0.55-1.30); GLOMERULAR FILTRATION RATE 44.1 (>51); MAGNESIUM LEVEL 2.2 MG/DL (1.8-2.4); POTASSIUM SERUM 4.4 MMOL/L (3.5-5.1); SODIUM LEVEL 144.0 MMOL/L (136-145)
[2024-12-02] MEDS ORDERED: FUROSEMIDE 20 MG TAB PO PRN (08:35)
[2024-12-02] MEDS: FOSINOPRIL 10 MG TABLET PO SCH (21:24)
[2024-12-02] MEDS: MONTELUKAST 10 MG TAB PO PRN (21:25)
[2024-12-03 03:43] VITALS: BP 126/75; TEMP 97; O2SAT 93
[2024-12-03 06:34] LABS: PLATELET COUNT, AUTOMATED 225 10^3/uL (150-450)
[2024-12-03 06:58] LABS: CALCIUM LEVEL 8.6 MG/DL (8.5-10.1); CARBON DIOXIDE LEVEL 27.0 MMOL/L (20-31); CHLORIDE LEVEL 107.0 MMOL/L (98-107); CREATININE FOR GFR 1.43 MG/DL (0.55-1.30); GLOMERULAR FILTRATION RATE 44.1 (>51); MAGNESIUM LEVEL 2.0 MG/DL (1.8-2.4); POTASSIUM SERUM 4.7 MMOL/L (3.5-5.1); SODIUM LEVEL 140.0 MMOL/L (136-145)
[2024-12-03 08:23] VITALS: BP 128/87
[2024-12-03] MEDS ORDERED: BREO IH (10:07)
[2024-12-03] MEDS ORDERED: PRED10TA2 PO (10:07)
[2024-12-03] MEDS ORDERED: BREO1INH3 PO (10:10)
[2024-12-03] MEDS ORDERED: VENTAER INH (10:11)
[2024-12-03] MEDS ORDERED: ALBU2.5V10 NEB (10:25)
[2024-12-03] MEDS ORDERED: BUDE0.254 INH (10:25)
[2024-12-03] MEDS: FLUZONE VACCINE TRIVALENT PF(25-26) 0.5ML SYRINGE IM.IMMUN ONE (11:30)
[2024-12-03] MEDS: PNEUMOC 21-VAL CONJ-DIP CRM/PF 0.5 ML SYRINGE IM.IMMUN ONE (11:31)
[2024-12-03 12:00] VITALS: BP 144/85; TEMP 97.9; O2SAT 97
== END 2024-12-03 12:35 | disposition home or self-care (01) | DRG 141 ==
LOC: M ED 04:43 → EDBEDREQ 08:35 → M ED INP 09:12 → M ICU 15:06 → M MSPAV 12-02 16:50
PROVIDERS: ADMIT Internal Medicine; ATTEND Internal Medicine
DX: J45.901 Unspecified asthma with (acute) exacerbation (principal); J96.01 Acute respiratory failure with hypoxia; E87.20 Acidosis, unspecified; Q61.3 Polycystic kidney, unspecified; N18.32 Chronic kidney disease, stage 3b; D72.829 Elevated white blood cell count, unspecified; I10 Essential (primary) hypertension; F41.9 Anxiety disorder, unspecified; K21.9 Gastro-esophageal reflux disease without esophagitis; M10.9 Gout, unspecified; G43.909 Migraine, unspecified, not intractable, without status migrainosus; B97.89 Other viral agents as the cause of diseases classified elsewhere; B97.10 Unspecified enterovirus as the cause of diseases classified elsewhere; Z79.899 Other long term (current) drug therapy; Z88.2 Allergy status to sulfonamides; Z91.048 Other nonmedicinal substance allergy status; F32.A Depression, unspecified

== ENCOUNTER → 2024-12-12 | Outpatient (CLI) | payer BC ==
[~2024-12-12] MED LIST changes: +ALBU2.5V10 NEB; +ALLO100T PO; +AMIL5TAB4 PO; +BREO IH; +BREO PO; +BREO1INH3 PO; +BUDE0.254 INH; +FOSI40TA59 PO; +FURO20TA2 PO; +OMEP-173 PO; +PRED10TA2 PO; +VENL150C43 PO; +VENL37.598 PO; +VENTAER INH
[2024-12-12 18:46] LABS: BASO # 0.0 10^3/uL (0.0-0.2); BASO % 0.3 % (0.0-1.0); EOS # 0.1 10^3/uL (0.0-0.5); EOS % 0.6 % (0.0-3.0); LYMPH # 1.6 10^3/uL (1.5-5.0); LYMPH % 12.0 % (24.0-44.0); MONO # 0.3 10^3/uL (0.0-0.8); MONO % 2.1 % (2.0-8.0); NEUTROPHILS # 11.2 10^3/uL (1.5-8.5); NEUTROPHILS % 84.1 % (36.0-66.0); PLATELET COUNT, AUTOMATED 279 10^3/uL (150-450)
[2024-12-12 18:57] LABS: ALT/SGPT 24.0 U/L (7.0-40); AST/SGOT 14.0 U/L (<34); CALCIUM LEVEL 8.6 MG/DL (8.5-10.1); CARBON DIOXIDE LEVEL 27.0 MMOL/L (20-31); CHLORIDE LEVEL 100.0 MMOL/L (98-107); CREATININE FOR GFR 1.76 MG/DL (0.55-1.30); GLOMERULAR FILTRATION RATE 34.4 (>51); POTASSIUM SERUM 4.4 MMOL/L (3.5-5.1); SODIUM LEVEL 138.0 MMOL/L (136-145)
== END ==
LOC: M WUC 13:59
PROVIDERS: ATTEND Registered Nurse
DX: J45.901 Unspecified asthma with (acute) exacerbation (principal)

== ENCOUNTER → 2025-01-04 | Outpatient (REF) | payer BC ==
[2025-01-04 13:28] LABS: APPEARANCE, URINE CLEAR (CLEAR); BACTERIA, URINE AUTO NEGATIVE (NEGATIVE); BILIRUBIN, URINE AUTO NEGATIVE (NEGATIVE); BLOOD, URINE BLOOD NEGATIVE (NEGATIVE); GLUCOSE, URINE (UA) AUTO NEGATIVE (NEGATIVE); KETONE, URINE AUTO NEGATIVE (NEGATIVE); LEUKOCYTE ESTERASE, URINE AUTO NEGATIVE (NEGATIVE); NITRITE, URINE AUTO NEGATIVE (NEGATIVE); PROTEIN, URINE AUTO NEGATIVE (NEGATIVE); RBC, URINE AUTO 0 /HPF (0-3); SPECIFIC GRAVITY URINE AUTO 1.012 (1.002-1.035); SQUAMOUS EPITHELIAL CELL UR AU 0 /HPF (0-6); UROBILINOGEN, URINE AUTO 0.2 mg/dL (0.0-2.0); WBC, URINE AUTO 0 /HPF (0-3)
== END ==
LOC: M SMT 12:41
PROVIDERS: ATTEND Urology
DX: R31.29 Other microscopic hematuria (principal); R87.610 Atypical squamous cells of undetermined significance on cytologic smear of cervix (ASC-US)

== ENCOUNTER → 2025-01-10 | Outpatient (CLI) | payer BC | LOC: M SLEEP HO 10:57 | PROVIDERS: ATTEND Physician Assistant | DX: G47.9 Sleep disorder, unspecified (principal); R40.0 Somnolence ==

== ENCOUNTER → 2025-02-23 | Outpatient (CLI) | payer BC | LOC: M SOG 07:41 | PROVIDERS: ATTEND Orthopaedic Surgery | DX: M25.551 Pain in right hip (principal); M25.552 Pain in left hip ==